=== PATIENT | male | born 1965 | race African-American/Black ===

== ENCOUNTER 2025-02-15 11:15 | Emergency (ER) | payer SELFPAY ==
[2025-02-15 11:59] LABS: BASOPHILS PERCENT AUTO 0.2 % (0.0-1.0); EOSINOPHILS ABSOLUTE AUTO 0.1 K/mm3 (0.0-0.4); EOSINOPHILS PERCENT AUTO 1.8 % (0.0-6.0); HEMATOCRIT 39.4 % (42.0-52.0); HEMOGLOBIN 14.3 gm/dl (14.0-18.0); IMMATURE GRAN ABSOLUTE AUTO 0.01 K/mm3 (0.00-0.05); IMMATURE GRAN PERCENT AUTO 0.2 % (0.0-0.4); LYMPHOCYTES ABSOLUTE AUTO 2.4 K/mm3 (1.0-4.8); LYMPHOCYTES PERCENT AUTO 47.5 % (24.0-44.0); MEAN CORPUSCULAR HGB CONC 36.3 g/dl (32.0-36.0); MEAN CORPUSCULAR VOLUME 93.6 fl (83.0-99.0); MEAN PLATELET VOLUME 8.9 fl (9.4-12.4); MONOCYTES ABSOLUTE AUTO 0.4 K/mm3 (0.0-0.8); MONOCYTES PERCENT AUTO 7.7 % (0.0-8.0); NEUTROPHILS ABSOLUTE AUTO 2.2 K/mm3 (1.8-7.7); NEUTROPHILS PERCENT AUTO 42.6 % (41.0-71.0); PLATELET COUNT,PLT 268 K/mm3 (150-400); RED BLOOD CELL COUNT 4.21 M/mm3 (4.52-5.90); WHITE BLOOD CELL COUNT,WBC 5.07 K/mm3 (3.9-11.3)
[2025-02-15] MEDS: Sodium Chloride 0.9% 10 ML Syringe FLUSH PRN (12:06)
[2025-02-15] MEDS: Sodium Chloride 0.9% 1,000 ML IV STA (12:06)
[2025-02-15 12:27] LABS: A/G RATIO 0.8 (1-2); ALBUMIN 3.7 g/dl (3.4-5.0); ANION GAP 16.2 (5-15); BILIRUBIN TOTAL 0.9 mg/dL (0.2-1.0); C-REACTIVE PROTEIN 0.1 mg/dL (<0.30); EST CRCL DRUG DOSING (CG) 85.76 mL/min; MAGNESIUM 1.5 mg/dL (1.8-2.4); POTASSIUM,K 4.2 mEq/L (3.5-5.1); PROTEIN TOTAL,TP 8.2 g/dl (6.4-8.2)
[2025-02-15] MEDS: Magnesium Sulf/Wat 4 GM/50 mL 4 GM in Premix Bag 1 BAG IV ONE (12:38)
[2025-02-15] MEDS: LORazepam 2 MG/ML SDV IVPUSH ONE (14:07)
[2025-02-15] MEDS: Orphenadrine 100 MG Tab.ER PO ONE (17:02)
[2025-02-15] MEDS: predniSONE 10 MG Tab PO ONE (17:03)
== END 2025-02-15 17:14 | disposition home or self-care (01) ==
LOC: JD.ED 11:15
DX: E83.42 Hypomagnesemia (principal); M79.89 Other specified soft tissue disorders; M25.532 Pain in left wrist; F17.200 Nicotine dependence, unspecified, uncomplicated; Z79.899 Other long term (current) drug therapy
CPT/HCPCS: 36415; 71046; 73110; 80053; 83735; 84484; 85025; 86140; 93005; 93971; 96361; 96365; 96366; 96375; 99284; A9270; J2060; J3360; J3475; J7030; J7512